=== PATIENT | male | born 1955 | race African-American/Black ===

== ENCOUNTER 2023-01-20 12:39 | Outpatient (OUT) | payer MEDICARE, MEDICAID, SELFPAY ==
--- NOTE | 2023-01-20 13:20 | XR_ITS ---
The [address] [address] Patient Name: SHERIF ABARCA MRN: [id number] date: 1955 Sex: M Assigned Patient Location: [facility] Current Patient Location: [facility] Accession/Order Number: [id number] Exam Date: 01/20/2023 14:00 Report Date: 01/20/2023 19:20 At the request of: LILI MARLOW Procedure: XR chest 2V EXAM: XR chest 2V HISTORY: Preop exam COMPARISON: None. TECHNIQUE: Upright PA and lateral chest x-ray FINDINGS: The heart is not enlarged and the vasculature is not distended. No acute infiltrate, effusion or pneumothorax is identified. The osseous structures are grossly intact. XR/XR chest 2V IMPRESSION: No acute infiltrate or evidence of cardiac decompensation. Direct comparison with a previous study may be helpful in determining the chronicity of these findings. Electronically authenticated by: PAMELA SHAH Date: 01/20/2023 19:20
--- NOTE | 2023-01-20 13:20 | ECG_ITS ---
The [facility] [place] Test Date: 2023-01-20 Pat Name: SHERIF ABARCA Department: Room: - Gender: Male [employer]: : 1955 Requested By: LILI MARLOW Order Number: [id number] Reading MD: NAIDA RODRIGUEZ Measurements Intervals [place] Rate: 82 P: 13 NM: 158 QRS: -2 QRSD: 100 T: 14 QT: 363 QTc: 424 Interpretive Statements SINUS RHYTHM NONSPECIFIC T-WAVE ABNORMALITY No previous ECG available for comparison Electronically Signed On 01-21-2023 7:02:20 EDT by NAIDA RODRIGUEZ
--- NOTE | 2023-01-20 14:01 | P.GSHP_ITS ---
History of Present Illness History of Present Illness Chief complaint: bph with obstruction, bladder stone Narrative: Patient presents for preadmission testing accompanied by his friend. The patient states he has incomplete bladder emptying and frequency with urination but he has not noticed any dysuria. He has intermittent dysuria. He denies abdominal pain, nausea, vomiting, or any other complaints. Review of Systems ROS Narrative REVIEW OF SYSTEMS: Negative except as stated in HPI, ten or more systems reviewed. Constitutional: No fever , chills, weakness ENT: No sore throat or epistaxis Cardiovascular: No edema, chest pain, palpitations, or activity intolerance Respiratory: No shortness of breath, cough, or wheezing Musculoskeletal: No joint pain or swelling Gastrointestinal: No abdominal pain, constipation, diarrhea, or vomiting Neurological: No numbness, tingling, weakness, or headache Psychiatric: No mood changes PFSH PFS Medical History (Updated 01/20/23 @ 14:05 by Farzana Arthur NP) Asthma ?J45.909 - Unspecified asthma, uncomplicated (ICD-10) Bladder stone ?N21.0 - Calculus in bladder (ICD-10) BPH with obstruction/lower urinary tract symptoms ?N40.1 - Benign prostatic hyperplasia with lower urinary tract symptoms (ICD- 10) ?N13.8 - Other obstructive and reflux uropathy (ICD-10) Diabetes ?E11.9 - Type 2 diabetes mellitus without complications (ICD-10) GERD (gastroesophageal reflux disease) ?K21.9 - Gastro-esophageal reflux disease without esophagitis (ICD-10) Hearing loss ?H91.90 - Unspecified hearing loss, unspecified ear (ICD-10) Hematuria ?R31.9 - Hematuria, unspecified (ICD-10) High cholesterol ?E78.00 - Pure hypercholesterolemia, unspecified (ICD-10) Hypertension ?I10 - Essential (primary) hypertension (ICD-10) Sleep apnea ?G47.30 - Sleep apnea, unspecified (ICD-10) Surgical History (Updated 01/20/23 @ 13:41 by Farzana Arthur NP) History of bladder surgery ?Z98.890 - Other specified postprocedural states (ICD-10) History of colonoscopy ?Z98.890 - Other specified postprocedural states (ICD-10) History of rectal surgery ?Z98.890 - Other specified postprocedural states (ICD-10) S/P cystoscopy ?Z98.890 - Other specified postprocedural states (ICD-10) Family History (Updated 01/20/23 @ 13:41 by Farzana Arthur NP) Other Family history of diabetes mellitus Family history of hypertension Family history of lung cancer Family history of uterine cancer Social History (Updated 01/20/23 @ 13:58 by Farzana Arthur NP) Within the past year, how often did you have a drink containing alcohol: never Score interpretation: A score less than 4 is consistent with normal alcohol consumption. Smoking status: Former smoker Meds Home Medications and Allergies Home Medications Medication Instructions Recorded Confirmed Type albuterol sulfate 90 mcg/actuation 2 inh inhalation Q6H PRN shortness 01/20/23 01/20/23 History aerosol inhaler of breath or wheezing amlodipine 10 mg tablet 10 mg PO DAILY 01/20/23 01/20/23 History losartan 50 mg tablet 50 mg PO DAILY 01/20/23 01/20/23 History metformin 500 mg tablet 500 mg PO DAILY 01/20/23 01/20/23 History montelukast 10 mg tablet 10 mg PO DAILY 01/20/23 01/20/23 History (Singulair) ranitidine HCl 150 mg tablet mg 01/20/23 History semaglutide 2 mg/dose (8 mg/3 mL) 2 mg subcut QWEEK 01/20/23 01/20/23 History subcutaneous pen injector (Ozempic) tamsulosin 0.4 mg capsule (Flomax) 0.4 mg PO DAILY 01/20/23 01/20/23 History theophylline 600 mg 600 mg PO DAILY 01/20/23 01/20/23 History tablet,extended release 24 hr Allergies Allergy/AdvReac Type Severity Reaction Status Date / Time No Known Drug Allergies Allergy Verified 01/20/23 13:32 Exam Narrative Exam Narrative: Constitutional: Awake, alert, comfortable, chronically ill-appearing, nontoxic, interactive, vital signs as charted Head: Normocephalic, atraumatic Eyes: Sclera injected bilaterally Neck: Supple, normal appearance, normal range of motion, no meningeal signs, no lymphadenopathy Respiratory: No respiratory distress, breath sounds clear Cardiovascular: Regular rate and rhythm, strong and regular heart tones Abdomen: Nontender, normal bowel sounds, soft, no CVA tenderness Musculoskeletal: Normal gait, no swelling or edema Skin: No rashes or induration, no lesions, only visible skin inspected Neuro: No neurological deficits, normal sensation Psychiatric: Oriented ?3, normal affect Assessment and Plan Assessment and Plan (1) Bladder stone: (2) BPH with obstruction/lower urinary tract symptoms: (3) Hematuria: (4) History of bladder surgery: Plan Cystoscopy, transurethral resection of the prostate, litholapaxy, shock pulse, r emoval of-year-old lift bands scheduled with Dr. Cortez 02/03/2023.
[2023-01-20 14:15] LABS: Basophils Percent Auto 0.1 % (0.2-2.0); Hematocrit 39.4 % (42.0-54.0); Hemoglobin 12.8 g/dL (14.0-18.0); Immature Granulocytes Abs Auto 0.01 10^3/uL (0.00-0.03); Immature Granulocytes Pct Auto 0.1 % (0.0-0.5); Lymphocytes Absolute Auto 2.1 10^3/uL (1.2-3.8); Lymphocytes Percent Auto 25.2 % (20.5-60.0); Mean Corpuscular HGB Conc 32.5 g/dL (29.9-35.2); Mean Corpuscular Hemoglobin 29.9 pg (25.9-34.0); Mean Corpuscular Volume 92.1 fL (80.0-94.0); Neutrophils Absolute Auto 5.3 10^3/uL (1.4-6.5); Neutrophils Percent Auto 62.6 % (43.0-75.0); Platelet Count 247 10^3/uL (150-450); Red Blood Count 4.28 10^6/uL (4.70-6.10); Red Cell Distribution Width 15.3 % (11.0-15.0); White Blood Count 8.5 10^3/uL (4.0-11.0)
[2023-01-20 14:17] LABS: BUN Creatinine Ratio 10.3; Calcium 8.7 mg/dL (8.5-10.1); Carbon Dioxide 26.8 mmol/L (21.0-32.0); Chloride 106 mmol/L (98-107); Estimated GFR (African America >60 (>=60); Estimated GFR (Non-African Ame >60 (>=60); Glucose 81 mg/dL (74-106); Potassium 3.8 mmol/L (3.5-5.1); Sodium 141 mmol/L (136-145)
[2023-01-20 14:27] LABS: Prothrombin Time 10.6 sec (9.0-11.6)
[2023-01-20 14:45] LABS: Partial Thromboplastin Time 30.9 sec (22.3-36.2)
== END 2023-01-20 12:40 | disposition home or self-care (01) ==
PROVIDERS: PCP Family Medicine; Visit Provider Urology
DX: Z01.810 Encounter for preprocedural cardiovascular examination (principal); Z01.812 Encounter for preprocedural laboratory examination; I10 Essential (primary) hypertension; E11.9 Type 2 diabetes mellitus without complications; J44.9 Chronic obstructive pulmonary disease, unspecified; N40.1 Benign prostatic hyperplasia with lower urinary tract symptoms; N21.0 Calculus in bladder; R31.9 Hematuria, unspecified; R51.9 Headache, unspecified
CPT/HCPCS: 36415; 71046; 80048; 85025; 85610; 85730; 93005; G0463

== ENCOUNTER 2023-02-03 10:02 | Day surgery (SDC) | payer MEDICARE, MEDICAID, SELFPAY ==
[2023-01-20 13:54] VITALS: BP 136/92; PULSE 86; RESP 20; TEMP 36.2; O2SAT 94; BMI 47.6
[2023-02-03] VITALS (14 sets, daily range): BP systolic 106–159; BP diastolic 74–107; PULSE 70–92; RESP 9–26; TEMP 35.8–36.6; O2SAT 88–98; BMI 45.7
[2023-02-03 10:31] LABS: Glucometer 108 mg/dL (74-106)
[2023-02-03] MEDS: LACTATED RINGER'S SOLUTION 1,000 ML 50 ML IV ×2 (10:33→14:00)
[2023-02-03] MEDS: FAMOTIDINE/PF 20 MG/2 ML VIAL IV (10:38)
[2023-02-03] MEDS: LEVOFLOXACIN IN DEXTROSE 5 % 500 MG/100 ML PIGGYBACK 100 MG IV (12:41)
--- NOTE | 2023-02-03 14:33 | P.URON_ITS ---
Urology Surgery Operative Note Operative Note Procedure Date: 02/03/23 Time Out Performed: yes Pre-op Diagnosis: , BPh with L UTS refractory to medications and bladder calculus Post-op Diagnosis: same as pre-op Procedures performed: . #1. Cystoscopy. #2. Transurethral resection of the prostate. #3. Cystolitholapaxy of a 3 cm stone Anesthesia: KARLA Primary Surgeon: Davide Cortez Complications: none Estimated blood loss (mL): 20 Findings: 4 uro-lift bands. One large bladder calculus. Ck prostate. Specimens: #1. Prostate chips. #2. Bladder calculus Drains: 24 [place]ian three-way coud? to traction and CBI Indications for Procedures: this gentleman has had a uro-lift procedure done in the past. He has had progressive bladder outlet obstructive symptoms and urinary infections along with a bladder calculus despite medications. He now presents for cyystoscopy, trannsurethral resection of the prostate and removal of uro-lift bands and cystolitholapaxy. He has signed an informed consent after all the risks were explained to him in great detail. Some of these risks include bleeding, infection, anesthesia, retrograde ejaculation, urinary incontinence, both temporary and permanent, and erectile dysfunction to name a few. Detailed description of Procedure: The patient was brought to the operating room and placed on the operating room table in the supine position. SCDs were placed on the lower extremities and turned on and functioning during the entire case. Timeout was done by all parti es in the room. We all agreed upon the patient's identification and the planned procedures for this patient. Genn. anesthesia was then administered. The patient was then repositioned into the modified dorsal lithotomy position. All pressure points were satisfactorily padded. Genitalia were sterilely prepped and draped in usual fashion.. I started by passing a 26 [place] Olympus resectoscope with th e standard bipolar loop electrode per urethra and into the bladder. The bladder stone was identified. The ureteral orifices were marked with the loop electrode. I started at the bladder neck and resected the median lobe down to the bladder neck level. I then resected posteriorly from the bladder neck to the veru level. I then did the left lateral lobe, right lateral lobe and the anterior tissue in a similar fashion. in doing so, for uro-lift bands were removed.The bladder neck was opened up at the 5 and 7:00 positions. The apex was then opened up. The resection bed was coagulated with the loop electrode.the ellick evacuator was used to get all of the prostate chips out of the bladder and these were sent for permanent sections. With the scope at the apex. The prostate urethra and bladder neck were wide open. Air was no bleeding. There were no chips in the bladder. The resectoscope was then removed. I then passed a 26 [place]ian nephroscope into the bladder. I then passed the shock pulse probe through the scope and made contact with the stone. I then began doing lithotripsy on this stone thereby simultaneously cracking it up and sucking it out. All of the stone was fragmented and removed. Upon completion there was no evidence of stone in the bladder nor were there any prostate chips.the nephroscope was removed. I then repassed the resectoscope and used the ellick to get any clots or debris out of the bladder. The scope was then removed. I then placed a 24 [place]ian three-way coud? Baird in the bladder. It was manually irrigated to verify placement. 30 mL of fluid was placed in the balloon. CBI was started. It was taped to traction. The irrigant was clear. The anesthetic was then reversed. He was then transferred to a [place] bed and wheeled to PACU in good condition.
[2023-02-03] MEDS: HYDROCODONE/ACET 5-325 MG TABLET 1 TAB PO ×2 (15:50→22:10)
[2023-02-03] MEDS: SOLIFENACIN SUCCINATE 10 MG TABLET PO (15:50)
[2023-02-03] MEDS: CEFAZOLIN SODIUM/DEXTROSE,ISO 1 GM/50 ML IV.SOLN IV ×2 (15:51→22:10)
[2023-02-03] MEDS: 0.9 % SODIUM CHLORIDE 1,000 ML 80 ML IV (15:52)
[2023-02-03] MEDS: PROMETHAZINE HCL 25 MG/ML VIAL 12.5 MG IV (16:04)
[2023-02-03] MEDS: SODIUM CHLORIDE IRRIG SOLUTION 3,000 ML 999 ML IRR ×3 (17:00→19:09)
[2023-02-03] MEDS: SODIUM CHLORIDE IRRIG SOLUTION 3,000 ML 3000 ML IRR (17:06)
[2023-02-03 21:57] LABS: Glucometer 153 mg/dL (74-106)
[2023-02-03] MEDS: SODIUM CHLORIDE IRRIG SOLUTION 3,000 ML 500 ML IRR (23:48)
[2023-02-04] MEDS: SODIUM CHLORIDE IRRIG SOLUTION 3,000 ML 999 ML IRR ×2 (01:12→03:18)
[2023-02-04 02:00] VITALS: BP 128/85; PULSE 83; RESP 18; TEMP 36.8; O2SAT 93
[2023-02-04 05:56] VITALS: BP 125/85; PULSE 78; RESP 18; TEMP 36.6; O2SAT 90
[2023-02-04] MEDS: SOLIFENACIN SUCCINATE 10 MG TABLET PO (08:38)
[2023-02-15 20:08] LABS: Calcium Oxalate Dihydrate 30 % (.); Calcium Oxalate Monohydrate 70 % (.); Size 4x3 mm (.)
== END 2023-02-04 09:57 | disposition home or self-care (01) ==
LOC: SURGOUT 14:30 → MS 14:49
PROVIDERS: PCP Family Medicine; Visit Provider Urology
PROC: (CPT 910; principal; 2023-02-03 11:35)
DX: N40.1 Benign prostatic hyperplasia with lower urinary tract symptoms (principal); N21.0 Calculus in bladder; R31.9 Hematuria, unspecified; J45.909 Unspecified asthma, uncomplicated; I10 Essential (primary) hypertension; E11.9 Type 2 diabetes mellitus without complications; E66.9 Obesity, unspecified; Z79.84 Long term (current) use of oral hypoglycemic drugs; R39.14 Feeling of incomplete bladder emptying; R35.0 Frequency of micturition; N13.8 Other obstructive and reflux uropathy; K21.9 Gastro-esophageal reflux disease without esophagitis; E78.00 Pure hypercholesterolemia, unspecified; G47.30 Sleep apnea, unspecified; H91.90 Unspecified hearing loss, unspecified ear; Z87.891 Personal history of nicotine dependence; Z79.85 Long-term (current) use of injectable non-insulin antidiabetic drugs; E66.01 Morbid (severe) obesity due to excess calories; Z68.43 Body mass index [BMI] 50.0-59.9, adult; R30.0 Dysuria; Z87.440 Personal history of urinary (tract) infections; R35.1 Nocturia; N39.43 Post-void dribbling
CPT/HCPCS: 52318; 52601; 36415; 82365; 82948; 88305; 99999; J2704